=== PATIENT | female | born 1970 | race Caucasian/White ===

== ENCOUNTER → 2016-07-02 | Outpatient (CLI) | payer OTHER ==
--- NOTE | 2016-07-02 20:42 | MR ---
EXAMINATION TYPE: MR heathine/lspine wo con DATE OF EXAM: 07/02/2016 3:53 PM COMPARISON: NONE HISTORY: Neck pain and Low back pain for 25 years Standard multiplanar, multisequence MRI departmental protocol Multiplanar, multisequence images of the cervical and lumbar spine were acquired. Diffusion weighted imaging was performed. FINDINGS: The cervical vertebra have normal alignment. Disc spaces are fairly well-maintained. There are small posterior disc herniations at C5-6 and C6-7 without impingement on the spinal canal. Cervical spinal cord has normal signal pattern. There is no evidence of a mass. There is no sign of edema. Brainstem is intact. There is no evidence of cervical paraspinal mass. There is a minute posterior disc bulge a t C3-4 towards the left side. I see no neural foraminal impingement. Conclusion : minute posterior cervical disc herniations at C5-6 C6-7 without impingement on the spinal canal. Smal l posterior C3-4 disc bulge. No fracture. The lumbar vertebrae have normal alignment. Disc spaces are fairly well-maintained. There is no evide nce of compression fracture. Spinal canal is widely patent. There is no spinal stenosis. The neural f oramina are widely patent. Lumbar nerve roots appear normal. I see no bony destructive process. There is no sign of lumbar paraspinal mass. The upper sacroiliac joints appear normal. CONCLUSION: Lumbar spine appears normal for age. No spinal stenosis or lumbar disc herniation.
== END | disposition home or self-care (01) ==
LOC: RADMRIMAIN 15:02
PROVIDERS: ATTEND Psychiatry & Neurology Neurology
DX: M50.21 Other cervical disc displacement, high cervical region (principal); M54.5 Low back pain
CPT/HCPCS: 72141; 72148

== ENCOUNTER → 2016-08-10 | Outpatient (CLI) | payer OTHER ==
--- NOTE | 2016-08-12 07:42 | MM ---
Reason for exam: screening (asymptomatic). Last mammogram was performed 1 year and 4 months ago. History: Family history of breast cancer in sister at age 48. Physical Findings: A clinical breast exam by your physician is recommended on an annual basis and results should be correlated with mammographic findings. MG Screening Mammo w CAD Bilateral CC and MLO view(s) were taken. Prior study comparison: April 09, 2015, bilateral MG 3d diag mammo w/cad PACO. January 18, 2011, bilateral digital screening mammo w/CAD. The breast tissue is heterogeneously dense. This may lower the sensitivity of mammography. No significant changes when compared with prior studies. ASSESSMENT: Negative, BI-RAD 1 RECOMMENDATION: Routine screening mammogram of both breasts in 1 year.
== END | disposition home or self-care (01) ==
LOC: RADMAMWWP 15:20
PROVIDERS: ATTEND Family Medicine
DX: Z12.31 Encounter for screening mammogram for malignant neoplasm of breast (principal)